=== PATIENT | female | born 2000 | race Asian ===

== ENCOUNTER 2025-03-18 01:28 | Emergency (ER) | payer BC, OTHER ==
[~2025-03-18] VITALS: Ht 144.8 cm; Wt 50.9 kg
[~2025-03-18 01:28] MED LIST: ALBU6.7H14
[2025-03-18 01:33] VITALS: TEMP 99
[2025-03-18 02:17] VITALS: BP 118/60; PULSE 119; RESP 15; O2SAT 96
[2025-03-18 02:22] LABS: PLATELET COUNT (AUTO) 296 K/uL (150-450); RED BLOOD CELL COUNT(AUTO) 3.87 MIL/uL (4.00-5.20); RED CELL DISTRIBUTION WIDTH 13.0 % (11.5-14.5); WHITE BLOOD COUNT (AUTO) 8.1 K/uL (4.5-11.0)
[2025-03-18 02:23] LABS: PH,URINE DRUG SCREEN 6.5 (5.0-8.0)
[2025-03-18 02:24] LABS: APPEARANCE,URINE HAZY (CLEAR); GLUCOSE, URINE (UA) NEGATIVE (NEGATIVE); LEUKOCYTE ESTERASE ,URINE LARGE (NEGATIVE); OCCULT BLOOD,URINE SMALL (NEGATIVE); SPECIFIC GRAVITIY, URINE 1.021 (1.003-1.030)
[2025-03-18 02:28] LABS: ALCOHOL, URINE DRUG SCREEN NEGATIVE (NEGATIVE); AMPHET/METH SCREEN,URINE NEGATIVE (NEGATIVE); BARBITURATE SCREEN, URINE NEGATIVE (NEGATIVE); CANNABINOID SCREEN,URINE NEGATIVE (NEGATIVE); COCAINE SCREEN,URINE NEGATIVE (NEGATIVE); METHADONE SCREEN, URINE NEGATIVE (NEGATIVE)
[2025-03-18 02:30] LABS: NITRATE,URINE NEGATIVE (NEGATIVE)
[2025-03-18 02:31] LABS: CALCIUM, TOTAL 8.6 mg/dL (8.8-10.5); CREATININE 0.91 mg/dL (0.60-1.30); GLOMERULAR FILTR. RATE CALC > 60 mL/min (>60); GLUCOSE,RANDOM 114 mg/dL (70-110); SODIUM SERUM 134 mmol/L (136-145); UREA NITROGEN, BLOOD 8 mg/dL (7-18)
[2025-03-18 02:40] LABS: SQUAMOUS EPITHELIAL CELL,UR Moderate /LPF (None Seen)
[2025-03-18 02:42] LABS: HCG,QUANTITATIVE < 1 mIU/mL (0-6)
[2025-03-18] MEDS: SODIUM CHLORIDE 0.9% 1,000 ML IV ONE (03:13)
[2025-03-18] MEDS ORDERED: CEPHALEXIN MONOHYDRATE 500 MG CAPSULE PO ONE (03:30)
[2025-03-18] MEDS: CefTRIAXone 1 GM/DEXTROSE 50 ML IV ONE (03:59)
[2025-03-18] MEDS ORDERED: CEPH-558 PO (05:44)
== END 2025-03-18 07:28 | disposition home or self-care (01) ==
LOC: EMS 01:28
DX: R10.31 Right lower quadrant pain (principal); N39.0 Urinary tract infection, site not specified; J45.909 Unspecified asthma, uncomplicated; N89.8 Other specified noninflammatory disorders of vagina; Z88.6 Allergy status to analgesic agent; Z79.899 Other long term (current) drug therapy; Z91.013 Allergy to seafood
CPT/HCPCS: 99285; 74176; 96365; 96361; 80048; 81001; 83690; 84702; 85025; 87040; 87077; 87086; 36415; 74018; 93005; 80307; J0696; J7030; 87186